=== PATIENT | male | born 1975 ===

== ENCOUNTER 2021-07-27 12:32 | Emergency (ER) | payer OTHER ==
[2021-07-27] MEDS ORDERED: Dexamethasone 4 MG Tab PO ONE (13:39)
--- NOTE | 2021-07-27 13:42 | CR ---
Chest: Portable view of the chest was obtained. Comparison: Prior chest x-ray of 10/26/20. Heart size and mediastinum are within normal limits for portable technique. Scattered areas of parenchymal density are noted within both sides of the chest. Bony structures show nothing acute. Impression: 1. Patchy increased density within both sides of the chest. Findings have the appearance of moderately severe COVID pneumonia. Please correlate. Diagnostic code #3
[2021-07-27] MEDS ORDERED: Ketorolac 30 MG/ML SDV IVPUSH ONE (13:46)
[2021-07-27] MEDS ORDERED: Sodium Chloride 0.9% 10 ML Syringe FLUSH PRN (13:47)
[2021-07-27] MEDS ORDERED: methylPREDNISolone Sodium Succinate 125 MG/2 ML SDV IVPUSH PRN (14:34)
[2021-07-27] MEDS ORDERED: EPINEPHrine 1 MG/ML SDV IM PRN (14:34)
[2021-07-27] MEDS ORDERED: Famotidine 20 MG/2 ML SDV IVPUSH PRN (14:34)
[2021-07-27] MEDS ORDERED: diphenhydrAMINE 50 MG/ML SDV IVPUSH PRN (14:34)
[2021-07-27] MEDS ORDERED: Sodium Chloride 0.9% 10 ML Syringe FLUSH SCH (14:45)
--- NOTE | 2021-07-27 15:21 | EDM.PDOC ---
ED HPI GENERAL MEDICAL PROBLEM - General Chief Complaint: Respiratory Problem Stated Complaint: COVID SX Time Seen by Provider: 07/27/21 13:01 Source of Information: Reports: Patient, RN Notes Reviewed History Limitations: Reports: No Limitations - History of Present Illness INITIAL COMMENTS - FREE TEXT/NARRATIVE: Patient is a 45-year-old male presenting to the emergency department with complaints of Covid symptoms. He reports cough, shortness of breath, "lung pain" body aches, and diarrhea. Symptoms began approximately 7 days ago. Reports feeling dizzy last evening. Patient did not receive Covid vaccinations. Denies any chronic underlying medical conditions. - Related Data Allergies Allergy/AdvReac Type Severity Reaction Status Date / Time No Known Allergies Allergy Verified 07/27/21 13:03 Home Meds: Home Meds dexAMETHasone [Decadron] 6 mg PO DAILY #4 tablet 07/27/21 [Rx] Past Medical History - Past Health History Medical/Surgical History: Denies Medical/Surgical History Endocrine/Metabolic History: Reports: Obesity/BMI 30+ Social & Family History - Tobacco Use Tobacco Use Status *Q: Never Tobacco User - Caffeine Use Caffeine Use: Reports: Coffee - Recreational Drug Use Recreational Drug Use: No ED ROS GENERAL - Review of Systems Review Of Systems: See Below Constitutional: Reports: Fever, Fatigue, Decreased Appetite HEENT: Reports: No Symptoms Respiratory: Reports: Shortness of Breath, Pleuritic Chest Pain, Cough Cardiovascular: Reports: Dyspnea on Exertion. Denies: Palpitations, Syncope Endocrine: Reports: No Symptoms GI/Abdominal: Reports: Diarrhea, Mucous in Stool. Denies: Abdominal Pain, Nausea, Vomiting Musculoskeletal: Reports: Other (Generalized body aches) Skin: Reports: No Symptoms Neurological: Reports: No Symptoms Psychiatric: Reports: No Symptoms Hematologic/Lymphatic: Reports: No Symptoms Immunologic: Reports: No Symptoms ED EXAM, GENERAL - Physical Exam Exam: See Below Exam Limited By: No Limitations General Appearance: Alert, WD/WN, No Apparent Distress Respiratory/Chest: No Respiratory Distress, No Accessory Muscle Use, Chest Non- Tender, Other (Minimal fine crackles to bilateral bases.) Cardiovascular: Normal Peripheral Pulses, Regular Rate, Rhythm, No Edema, No Gallop, No JVD, No Murmur, No Rub GI/Abdominal: Normal Bowel Sounds, Soft, Non-Tender, No Organomegaly, No Distention, No Abnormal Bruit, No Mass Neurological: Alert, Oriented, CN II-XII Intact, Normal Cognition, Normal Gait, Normal Reflexes, No Motor/Sensory Deficits Psychiatric: Normal Affect, Normal Mood Skin Exam: Warm, Dry, Intact, Normal Color, No Rash #1 Interpretation EKG Date: 07/27/21 Time: 13:54 Rhythm: NSR Rate (Beats/Min): 106 [place]: Normal P-Wave: Present QRS: Normal ST-T: Normal QT: Prolonged (mildly) Course - Vital Signs Last Recorded V/S: Last Vital Signs Temp 97.2 F 07/27/21 13:01 Pulse 89 07/27/21 16:00 Resp 24 H 07/27/21 16:00 BP 116/79 07/27/21 16:00 Pulse Ox 93 L 07/27/21 16:00 - Orders/Labs/Meds Orders: Active Orders 24 hr Category Date Time Status Peripheral IV Insertion Adult [OM.PC] Stat Oth 07/27/21 13:47 Ordered Labs: Laboratory Tests 07/27/21 07/27/21 07/27/21 Range/Units 13:22 13:22 13:22 WBC 8.12 (4.23-9.07) K/mm3 RBC 5.25 (4.63-6.08) M/mm3 Hgb 15.4 D (13.7-17.5) gm/dl Hct 46.1 (40.1-51.0) % MCV 87.8 (79.0-92.2) fl MCH 29.3 (25.7-32.2) pg MCHC 33.4 (32.2-35.5) g/dl RDW Std Deviation 44.0 H (35.1-43.9) fL Plt Count 192 (163-337) K/mm3 MPV 9.7 (9.4-12.3) fl Neut % (Auto) 80.8 H (34.0-67.9) % Lymph % (Auto) 13.4 L (21.8-53.1) % [place] % (Auto) 5.3 (5.3-12.2) % Eos % (Auto) 0 L (0.8-7.0) Baso % (Auto) 0.1 (0.1-1.2) % Neut # (Auto) 6.56 H (1.78-5.38) K/mm3 Lymph # (Auto) 1.09 L (1.32-3.57) K/mm3 [place] # (Auto) 0.43 (0.30-0.82) K/mm3 Eos # (Auto) 0.00 L (0.04-0.54) K/mm3 Baso # (Auto) 0.01 (0.01-0.08) K/mm3 D-Dimer, Quantitative 0.56 H (0.19-0.50) mg/L Sodium 142 (136-145) mEq/L Potassium 3.8 (3.5-5.1) mEq/L Chloride 105 (98-107) mEq/L Carbon Dioxide 27 (21-32) mEq/L Anion Gap 13.8 (5-15) BUN 14 (7-18) mg/dL Creatinine 0.9 (0.7-1.3) mg/dL Est Cr Clr Drug Dosing 81.66 mL/min Estimated GFR (MDRD) > 60 (>60) mL/min BUN/Creatinine Ratio 15.6 (14-18) Glucose 165 H (70-99) mg/dL Calcium 8.0 L (8.5-10.1) mg/dL Total Bilirubin 0.5 (0.2-1.0) mg/dL AST 60 H (15-37) U/L ALT 55 (16-63) U/L Alkaline Phosphatase 63 (46-116) U/L Troponin I < 0.017 (0.00-0.056) ng/mL C-Reactive Protein 12.9 H* (<1.0) mg/dL Total Protein 6.9 (6.4-8.2) g/dl Albumin 3.0 L (3.4-5.0) g/dl Globulin 3.9 gm/dL Albumin/Globulin Ratio 0.8 L (1-2) SARS-CoV-2 RNA (LOLI) (NEGATIVE) 07/27/21 Range/Units 13:22 WBC (4.23-9.07) K/mm3 RBC (4.63-6.08) M/mm3 Hgb (13.7-17.5) gm/dl Hct (40.1-51.0) % MCV (79.0-92.2) fl MCH (25.7-32.2) pg MCHC (32.2-35.5) g/dl RDW Std Deviation (35.1-43.9) fL Plt Count (163-337) K/mm3 MPV (9.4-12.3) fl Neut % (Auto) (34.0-67.9) % Lymph % (Auto) (21.8-53.1) % [place] % (Auto) (5.3-12.2) % Eos % (Auto) (0.8-7.0) Baso % (Auto) (0.1-1.2) % Neut # (Auto) (1.78-5.38) K/mm3 Lymph # (Auto) (1.32-3.57) K/mm3 [place] # (Auto) (0.30-0.82) K/mm3 Eos # (Auto) (0.04-0.54) K/mm3 Baso # (Auto) (0.01-0.08) K/mm3 D-Dimer, Quantitative (0.19-0.50) mg/L Sodium (136-145) mEq/L Potassium (3.5-5.1) mEq/L Chloride (98-107) mEq/L Carbon Dioxide (21-32) mEq/L Anion Gap (5-15) BUN (7-18) mg/dL Creatinine (0.7-1.3) mg/dL Est Cr Clr Drug Dosing mL/min Estimated GFR (MDRD) (>60) mL/min BUN/Creatinine Ratio (14-18) Glucose (70-99) mg/dL Calcium (8.5-10.1) mg/dL Total Bilirubin (0.2-1.0) mg/dL AST (15-37) U/L ALT (16-63) U/L Alkaline Phosphatase (46-116) U/L Troponin I (0.00-0.056) ng/mL C-Reactive Protein (<1.0) mg/dL Total Protein (6.4-8.2) g/dl Albumin (3.4-5.0) g/dl Globulin gm/dL Albumin/Globulin Ratio (1-2) SARS-CoV-2 RNA (LOLI) Positive H (NEGATIVE) Meds: Medications Discontinued Medications Generic Name Dose Route Start Last Admin Trade Name Freq PRN Reason Stop Dose Admin Dexamethasone 6 mg 07/27/21 13:39 07/27/21 14:03 Dexamethasone 4 Mg Tab PO 07/27/21 13:40 6 mg ONETIME ONE Administration Diphenhydramine HCl 50 mg 07/27/21 14:34 Diphenhydramine 50 Mg/Ml Sdv IVPUSH ONETIME PRN hypersensitivity reaction Epinephrine HCl 0.3 mg 07/27/21 14:34 Epinephrine 1 Mg/Ml Sdv IM ONETIME PRN hypersensitivity reaction Famotidine 20 mg 07/27/21 14:34 Famotidine 20 Mg/2 Ml Sdv IVPUSH ONETIME PRN hypersensitivity reaction CASIRIVIMAB/IMDEVIMAB 10 ml/ 110 mls @ 220 mls/hr 07/27/21 14:34 07/27/21 1 4:54 Sodium Chloride IV 07/27/21 15:03 220 mls/hr ONETIME ONE Administration Ketorolac Tromethamine 30 mg 07/27/21 13:46 07/27/21 14:06 Ketorolac 30 Mg/Ml Sdv IVPUSH 07/27/21 13:47 30 mg ONETIME ONE Administration Methylprednisolone Sodium Succinate 125 mg 07/27/21 14:34 Methylprednisolone Sodium Succinate 125 Mg/2 Ml Sdv IVPUSH ONETIME PRN hypersensitivity reaction Sodium Chloride 10 ml 07/27/21 13:47 Sodium Chloride 0.9% 10 Ml Syringe FLUSH ASDIRECTED PRN Keep Vein Open Sodium Chloride 30 ml 07/27/21 14:45 Sodium Chloride 0.9% 10 Ml Syringe FLUSH ASDIRECTED OCTAVIA - Re-Assessments/Exams Free Text/Narrative Re-Assessment/Exam: Patient is a 45-year-old male presenting to the emergency department for evaluation of Covid symptoms. He is approximately 7 days into his illness. On exam, patient has fine crackles to bilateral bases. Oxygen saturations have been 90 to 93%. Vital signs are stable. Presentation is highly suspicious for COVID-19. Have ordered blood work, EKG, chest x-ray, and Covid test. I will give dexamethasone 6 mg p.o. and Toradol 30 mg IV. 07/27/21 1435 Hematology significant for D-dimer minimally elevated at 0.56 and CRP 12.9. Covid is positive. Chest x-ray shows diffuse bilateral Covid pneumonia. Oxygen saturations are maintaining 90 to 93%. I spoke with patient to provide information about Regeneron treatment for patient I offered them the ``Patient and Caregiver SRAVANTHI Regeneron Fact Sheet to read and review I stated the drug has been approved by an emergency use authorization (EUA) process and has not fully been FDA reviewed or approved The patient meets the EUA requirements I discussed there are other potential treatment options that are currently not FDA approved to treat COVID-19. Offered opportunity to ask questions and all questions were answered Patient voiced understanding and agreed to proceed with treatment for patient. 07/27/21 16:30 Patient has completed his Regeneron infusion and waiting period without adverse event. Oxygen saturations have maintained 90 to 93%. We will discharge her home with prescription for dexamethasone to start tomorrow. Recommend purchasing home pulse oximeter and monitoring oxygen saturations. Discussed return precautions. Discharge instructions as documented. Departure - Departure Time of Disposition: 16:24 Disposition: Home, Self-Care 01 Condition: Good Clinical Impression: Pneumonia due to COVID-19 virus, COVID-19 - Discharge Information *PRESCRIPTION DRUG MONITORING PROGRAM REVIEWED*: No *COPY OF PRESCRIPTION DRUG MONITORING REPORT IN PATIENT JORDEN: No Prescriptions: dexAMETHasone [Decadron] 6 mg PO DAILY #4 tablet Instructions: COVID-19 Frequently Asked Questions Referrals: PCP,None [Primary Care Provider] - Forms: ED Department Discharge Additional Instructions: You were seen in the emergency department today for evaluation with regards to Covid symptoms. Work-up included blood work, chest x-ray, and Covid test. Results of your work-up show that you are Covid positive. Chest x-ray does show bilateral Covid pneumonia. Your oxygen saturations were in the normal range whi slick in the emergency department. While in the ER, you received an infusion of monoclonal antibodies as well as your first dose of dexamethasone. Prescription for dexamethasone has been sent to your pharmacy. Take this as prescribed starting tomorrow. Recommend purchasing a pulse oximeter that she may use at home. These are available at most pharmacies and possibly [facility]. Check your oxygen saturations intermittently throughout the day. If you are maintaining an oxygen saturation below 89% or you experience any other new or worsening symptoms of concern, you should return to the emergency department for reevaluation. Sepsis Event Note (ED) - Evaluation Sepsis Screening Result: No Definite Risk - Focused Exam Vital Signs: Vital Signs Temp Pulse Resp BP Pulse Ox 07/27/21 16:00 89 24 H 116/79 93 L 07/27/21 15:45 92 24 H 120/74 91 L 07/27/21 15:30 92 24 H 119/83 91 L 07/27/21 15:15 92 24 H 114/77 92 L 07/27/21 15:00 94 24 H 114/59 L 91 L 07/27/21 14:55 93 24 H 114/73 92 L 07/27/21 13:01 97.2 F 103 H 20 135/81 91 L - My Orders Last 24 Hours: My Active Orders 07/27/21 13:47 Peripheral IV Insertion Adult [OM.PC] Stat - Assessment/Plan Last 24 Hours: My Active Orders 07/27/21 13:47 Peripheral IV Insertion Adult [OM.PC] Stat
[2021-07-27 16:02] VITALS: BP 116/79; PULSE 89
== END 2021-07-27 16:58 | disposition home or self-care (01) ==
LOC: JD.ED 12:32
DX: U07.1 COVID-19 (principal); J12.82 Pneumonia due to coronavirus disease 2019; E66.9 Obesity, unspecified; Z68.31 Body mass index [BMI] 31.0-31.9, adult
CPT/HCPCS: 36415; 71045; 80053; 84484; 85025; 85379; 86140; 87635; 93005; 96374; 99285; J1885; J8540; M0243; Q0243; 93010; 99283; U0002

== ENCOUNTER 2021-07-29 09:51 | Inpatient (IN) | payer SELFPAY ==
--- NOTE | 2021-07-29 10:19 | EDM.PDOC ---
ED HPI GENERAL MEDICAL PROBLEM - General Chief Complaint: Respiratory Problem Stated Complaint: COVID + NOT GETTING BETTER Time Seen by Provider: 07/29/21 10:13 - History of Present Illness INITIAL COMMENTS - FREE TEXT/NARRATIVE: 45-year-old male presents the emergency room with increasing shortness of breath. He was diagnosed with Covid 2 days ago he did receive monoclonal antibody. However he is continuing to worsen. He is having increasing shortness of breath and difficulties with breathing. However he denies any chest pain. He is not having significant abdominal discomfort nausea vomiting constipation or diarrhea . He denies loss of smell or taste. Upon admission to the emergency room his O2 saturation was noted to be 77-79 % on room air. - Related Data Allergies Allergy/AdvReac Type Severity Reaction Status Date / Time No Known Allergies Allergy Verified 07/29/21 10:16 Home Meds: Home Meds dexAMETHasone [Decadron] 6 mg PO DAILY #4 tablet 07/27/21 [Rx] Past Medical History - Past Health History Medical/Surgical History: Denies Medical/Surgical History Endocrine/Metabolic History: Reports: Obesity/BMI 30+ Social & Family History - Tobacco Use Tobacco Use Status *Q: Never Tobacco User Second Hand Smoke Exposure: No - Caffeine Use Caffeine Use: Reports: Coffee, Soda - Recreational Drug Use Recreational Drug Use: No ED ROS GENERAL - Review of Systems Review Of Systems: See Below Constitutional: Reports: Malaise, Weakness, Fatigue HEENT: Reports: No Symptoms Respiratory: Reports: Shortness of Breath, Cough. Denies: Sputum, Hemoptysis Cardiovascular: Denies: Chest Pain GI/Abdominal: Reports: No Symptoms : Reports: No Symptoms Musculoskeletal: Reports: Other (Some generalized achiness) Skin: Reports: No Symptoms Neurological: Reports: No Symptoms ED EXAM, GENERAL - Physical Exam Exam: See Below Exam Limited By: No Limitations General Appearance: Alert, No Apparent Distress Eye Exam: Bilateral Eye: Normal Inspection Ears: Normal External Exam, Normal Canal, Hearing Grossly Normal, Normal TMs Nose: Normal Inspection, Normal Mucosa, No Blood Throat/Mouth: Normal Inspection, Normal Lips, Normal Teeth, Normal Gums, Normal Oropharynx, Normal Voice, No Airway Compromise Head: Atraumatic, Normocephalic Neck: Normal Inspection, Supple, Non-Tender, Full Range of Motion. No: Lymphadenopathy (L), Lymphadenopathy (R) Respiratory/Chest: No Respiratory Distress, No Accessory Muscle Use, Other (On initial exam he had a few crackles in the lung bases however when I went back and listened I did not hear this). No: Lungs Clear Cardiovascular: Regular Rate, Rhythm, No Edema, No Murmur GI/Abdominal: Normal Bowel Sounds, Soft, Non-Tender Back Exam: Normal Inspection. No: CVA Tenderness (L), CVA Tenderness (R) Extremities: Normal Inspection, No Pedal Edema Neurological: Alert, Oriented, Normal Cognition Course - Vital Signs Last Recorded V/S: Last Vital Signs Temp 36.3 C 07/29/21 10:12 Pulse 84 07/29/21 10:15 Resp 34 H 07/29/21 10:15 BP 126/84 07/29/21 10:15 Pulse Ox 95 07/29/21 10:16 - Orders/Labs/Meds Orders: Active Orders 24 hr Category Date Time Status HEPATIC FUNCTION PANEL,HFP [CHEM] DAILY Lab 07/30/21 12:15 Ordered HEPATIC FUNCTION PANEL,HFP [CHEM] DAILY Lab 07/31/21 12:15 Ordered HEPATIC FUNCTION PANEL,HFP [CHEM] DAILY Lab 08/01/21 12:15 Ordered HEPATIC FUNCTION PANEL,HFP [CHEM] DAILY Lab 08/02/21 12:15 Ordered Diltiazem IR [Cardizem] Med 07/29/21 13:26 Once 30 mg PO ONETIME ONE Labs: Laboratory Tests 07/29/21 07/29/21 07/29/21 Range/Units 10:56 12:28 12:28 WBC 9.77 H (4.23-9.07) K/mm3 RBC 5.55 (4.63-6.08) M/mm3 Hgb 16.3 (13.7-17.5) gm/dl Hct 49.4 (40.1-51.0) % MCV 89.0 (79.0-92.2) fl MCH 29.4 (25.7-32.2) pg MCHC 33.0 (32.2-35.5) g/dl RDW Std Deviation 44.4 H (35.1-43.9) fL Plt Count 286 D (163-337) K/mm3 MPV 9.7 (9.4-12.3) fl Neut % (Auto) 71.0 H (34.0-67.9) % Lymph % (Auto) 12.3 L (21.8-53.1) % [place] % (Auto) 11.1 (5.3-12.2) % Eos % (Auto) 0 L (0.8-7.0) Baso % (Auto) 0.9 (0.1-1.2) % Neut # (Auto) 6.94 H (1.78-5.38) K/mm3 Lymph # (Auto) 1.20 L (1.32-3.57) K/mm3 [place] # (Auto) 1.08 H (0.30-0.82) K/mm3 Eos # (Auto) 0.00 L (0.04-0.54) K/mm3 Baso # (Auto) 0.09 H (0.01-0.08) K/mm3 Manual Slide Review Normal smear D-Dimer, Quantitative 0.42 (0.19-0.50) mg/L Puncture Site Lt radial ABG pH 7.46 H (7.35-7.45) ABG pCO2 33.7 L (35.0-45.0) mmHg ABG pO2 63.0 L (80.0-100.0) mmHg ABG HCO3 23.7 (22.0-26.0) meq/L ABG O2 Saturation 90.4 L (96.0-97.0) % ABG Base Excess 1.0 (-2-2.0) Pedro Luis Test Positive O2 Delivery Device Room air Oxygen Flow Rate 0.0 Sodium (136-145) mEq/L Potassium (3.5-5.1) mEq/L Chloride (98-107) mEq/L Carbon Dioxide (21-32) mEq/L Anion Gap (5-15) BUN (7-18) mg/dL Creatinine (0.7-1.3) mg/dL Est Cr Clr Drug Dosing mL/min Estimated GFR (MDRD) (>60) mL/min BUN/Creatinine Ratio (14-18) Glucose (70-99) mg/dL Calcium (8.5-10.1) mg/dL Total Bilirubin (0.2-1.0) mg/dL Direct Bilirubin (0.0-0.2) mg/dl Indirect Bilirubin (0.1-1.0) mg/dL AST (15-37) U/L ALT (16-63) U/L Alkaline Phosphatase (46-116) U/L C-Reactive Protein (<1.0) mg/dL Total Protein (6.4-8.2) g/dl Albumin (3.4-5.0) g/dl Globulin gm/dL Albumin/Globulin Ratio (1-2) 07/29/21 07/29/21 Range/Units 12:28 12:28 WBC (4.23-9.07) K/mm3 RBC (4.63-6.08) M/mm3 Hgb (13.7-17.5) gm/dl Hct (40.1-51.0) % MCV (79.0-92.2) fl MCH (25.7-32.2) pg MCHC (32.2-35.5) g/dl RDW Std Deviation (35.1-43.9) fL Plt Count (163-337) K/mm3 MPV (9.4-12.3) fl Neut % (Auto) (34.0-67.9) % Lymph % (Auto) (21.8-53.1) % [place] % (Auto) (5.3-12.2) % Eos % (Auto) (0.8-7.0) Baso % (Auto) (0.1-1.2) % Neut # (Auto) (1.78-5.38) K/mm3 Lymph # (Auto) (1.32-3.57) K/mm3 [place] # (Auto) (0.30-0.82) K/mm3 Eos # (Auto) (0.04-0.54) K/mm3 Baso # (Auto) (0.01-0.08) K/mm3 Manual Slide Review D-Dimer, Quantitative (0.19-0.50) mg/L Puncture Site ABG pH (7.35-7.45) ABG pCO2 (35.0-45.0) mmHg ABG pO2 (80.0-100.0) mmHg ABG HCO3 (22.0-26.0) meq/L ABG O2 Saturation (96.0-97.0) % ABG Base Excess (-2-2.0) Pedro Luis Test O2 Delivery Device Oxygen Flow Rate Sodium 143 (136-145) mEq/L Potassium 4.3 (3.5-5.1) mEq/L Chloride 106 (98-107) mEq/L Carbon Dioxide 27 (21-32) mEq/L Anion Gap 14.3 (5-15) BUN 26 H (7-18) mg/dL Creatinine 0.9 (0.7-1.3) mg/dL Est Cr Clr Drug Dosing 81.66 mL/min Estimated GFR (MDRD) > 60 (>60) mL/min BUN/Creatinine Ratio 28.9 H (14-18) Glucose 161 H (70-99) mg/dL Calcium 8.6 (8.5-10.1) mg/dL Total Bilirubin 0.5 (0.2-1.0) mg/dL Direct Bilirubin 0.20 (0.0-0.2) mg/dl Indirect Bilirubin 0.3 (0.1-1.0) mg/dL AST 41 H (15-37) U/L ALT 59 (16-63) U/L Alkaline Phosphatase 69 (46-116) U/L C-Reactive Protein 6.8 H* (<1.0) mg/dL Total Protein 7.4 (6.4-8.2) g/dl Albumin 3.0 L (3.4-5.0) g/dl Globulin 4.4 gm/dL Albumin/Globulin Ratio 0.7 L (1-2) Meds: Medications Discontinued Medications Generic Name Dose Route Start Last Admin Trade Name Freq PRN Reason Stop Dose Admin Remdesivir 200 mg/ Sodium 250 mls @ 250 mls/hr 07/29/21 12:02 07/29/21 12:27 Chloride IV 07/29/21 12:03 250 mls/hr ONETIME ONE Administration - Re-Assessments/Exams Free Text/Narrative Re-Assessment/Exam: 07/29/21 13:17 Patient will be admitted with the significant hypoxia. He is started on remdesivir and dexamethasone. Case discussed with Dr. Carter, our hospitalist, who kindly accepts the patient. Refer to the patient's labs he is doing well on supplemental oxygen. Chest x-ray shows increased density within the left chest compared to the prior study a couple days ago. Departure - Departure Time of Disposition: 13:18 Disposition: Admitted As Inpatient 64 Clinical Impression: Pneumonia due to COVID-19 virus - Discharge Information Referrals: PCP,None [Primary Care Provider] - Forms: ED Department Discharge Sepsis Event Note (ED) - Evaluation Sepsis Screening Result: No Definite Risk - Focused Exam Vital Signs: Vital Signs Temp Pulse Resp BP Pulse Ox Pulse Ox 07/29/21 10:16 95 07/29/21 10:15 84 34 H 126/84 95 07/29/21 10:12 36.3 C 80 22 H 134/92 H 79 L - My Orders Last 24 Hours: My Active Orders 07/29/21 13:26 Diltiazem IR [Cardizem] 30 mg PO ONETIME ONE 07/30/21 12:15 HEPATIC FUNCTION PANEL,HFP [CHEM] DAILY 07/31/21 12:15 HEPATIC FUNCTION PANEL,HFP [CHEM] DAILY 08/01/21 12:15 HEPATIC FUNCTION PANEL,HFP [CHEM] DAILY 08/02/21 12:15 HEPATIC FUNCTION PANEL,HFP [CHEM] DAILY - Assessment/Plan Last 24 Hours: My Active Orders 07/29/21 13:26 Diltiazem IR [Cardizem] 30 mg PO ONETIME ONE 07/30/21 12:15 HEPATIC FUNCTION PANEL,HFP [CHEM] DAILY 07/31/21 12:15 HEPATIC FUNCTION PANEL,HFP [CHEM] DAILY 08/01/21 12:15 HEPATIC FUNCTION PANEL,HFP [CHEM] DAILY 08/02/21 12:15 HEPATIC FUNCTION PANEL,HFP [CHEM] DAILY
[2021-07-29] MEDS ORDERED: REMDESIVIR 200 MG in Sodium Chloride 0.9% 250 ML IV ONE (12:02)
--- NOTE | 2021-07-29 13:06 | CR ---
Chest: Frontal view of the chest was obtained. Comparison: Prior chest x-ray on 07/27/21. Heart size and mediastinum are stable. Patchy areas of increased density are seen on both sides of the chest. Findings on the left side are minimally increased. Findings on the right side are stable. Bony structures show nothing acute. Impression: 1. Slight increasing density within the left chest from prior study. 2. Other portions of the chest appear stable. Diagnostic code #3
[2021-07-29] MEDS ORDERED: Diltiazem IR 30 MG Tab PO ONE (13:26)
[2021-07-29] MEDS ORDERED: Albuterol 6.7 GM Inhaler INH PRN (15:52)
[2021-07-29] MEDS ORDERED: Melatonin 3 MG Tab PO PRN (15:52)
[2021-07-29] MEDS ORDERED: Ibuprofen 600 MG Tab PO PRN (15:52)
[2021-07-29] MEDS ORDERED: Ondansetron 4 MG/2 ML SDV IV PRN (15:52)
[2021-07-29] MEDS ORDERED: Albuterol/Ipratropium 3.0-0.5 MG/3 ML Neb Soln NEB PRN (15:52)
[2021-07-29] MEDS ORDERED: Acetaminophen 325 MG Tab PO PRN (15:52)
[2021-07-29] MEDS: Dexamethasone 4 MG Tab PO SCH (16:31)
--- NOTE | 2021-07-29 17:14 | PCM.HP.2 ---
H&P History of Present Illness - General Date of Service: 07/29/21 Admit Problem/Dx: Admission Diagnosis/Problem Admission Diagnosis/Problem Pneumonia - History of Present Illness Initial Comments - Free Text/Narative: 45-year-old male with 10 days of symptoms related to COVID-19 presents to the emergency department with worsening oxygen saturations. Patient was seen here 2 days ago in the emergency department secondary to shortness of breath. He was diagnosed with COVID-19 at that visit. Patient was given Regeneron and sent home to monitor his symptoms. This morning his oxygen saturations on his home m onitor was in the 60s. He was able to get them up to 80%, but felt it was important to come to the emergency department at the emergency department his oxygen saturations were between 77 and 79% on room air. He was placed on 2 L nasal cannula and his oxygen saturations increased to 95%. Patient complains of moderate shortness of breath and cough. Patient also complains of mild abdominal discomfort with diarrhea. He has lost the sense of taste. 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 He does not believe he got any specific treatment for it though. Chest x-ray did not show any cavitary lesions or granu karlee. It did show slight increasing density within the left chest consistent with COVID-19 pneumonia. Patient was started on remdesivir and given dexamethasone in the emergency department. On presentation to the emergency department his white count was 9.77, hemoglobin 16.3, platelet count 286, D-dimer 0.42. AB.46/33.7/63/24/. C-reactive protein 6.8. Sodium 143, potassium 4.3, chloride 106, bicarb 27, BUN 26, creatinine 0.9, glucose 161. AST 41, ALT 59, alk phos 69. Total bilirubin 0.5, albumin 3.0. - Related Data Allergies/Adverse Reactions: Allergies Allergy/AdvReac Type Severity Reaction Status Date / Time No Known Allergies Allergy Verified 07/29/21 10:16 Home Medications: Home Meds dexAMETHasone [Decadron] 6 mg PO DAILY #4 tablet 07/27/21 [Rx] Ibuprofen 2 tab PO PRN 07/29/21 [History] Past Medical History - Past Health History Medical/Surgical History: Denies Medical/Surgical History Respiratory History: Reports: Other (See Below) Other Respiratory History: baly fever 6-7 years ago Endocrine/Metabolic History: Reports: Obesity/BMI 30+ - Infectious Disease History Infectious Disease History: Reports: Novel Coronavirus Social & Family History - Tobacco Use Tobacco Use Status *Q: Never Tobacco User Second Hand Smoke Exposure: No - Caffeine Use Caffeine Use: Reports: Coffee, Soda - Recreational Drug Use Recreational Drug Use: No H&P Review of Systems - Review of Systems: Review Of Systems: Comprehensive ROS is negative, except as noted in HPI. Exam - Exam Exam: See Below - Vital Signs Vital Signs: Last Vital Signs Temp 98.1 F 07/29/21 15:00 Pulse 65 07/29/21 15:00 Resp 30 H 07/29/21 15:00 BP 133/96 H 07/29/21 15:00 Pulse Ox 90 L 07/29/21 15:00 Weight: 170 lb 6.4 oz - Exam Quality Assessment: Supplemental Oxygen General: Alert, Oriented, 4 HEENT: Conjunctiva Clear, Hearing Intact, Mucosa Moist & [place], Normal Nasal Septum Neck: Supple, Trachea Midline, 2 Lungs: Crackles (Bibasilar). No: Normal Respiratory Effort (Increased respiratory rate and effort) Cardiovascular: Regular Rate, Regular Rhythm GI/Abdominal Exam: Normal Bowel Sounds, Soft, Non-Tender, No Distention Extremities: Normal Inspection, Normal Range of Motion, Non-Tender, No Pedal Edema Skin: Warm, Dry, Intact Neurological: Cranial Nerves Intact Neuro Extensive - Mental Status: Alert, Oriented x3, Normal Mood/Affect, Normal Cognition - Patient Data Lab Results Last 24 hrs: Laboratory Results - last 24 hr 07/29/21 07/29/21 07/29/21 Range/Units 10:56 12:28 12:28 WBC 9.77 H (4.23-9.07) K/mm3 RBC 5.55 (4.63-6.08) M/mm3 Hgb 16.3 (13.7-17.5) gm/dl Hct 49.4 (40.1-51.0) % MCV 89.0 (79.0-92.2) fl MCH 29.4 (25.7-32.2) pg MCHC 33.0 (32.2-35.5) g/dl RDW Std Deviation 44.4 H (35.1-43.9) fL Plt Count 286 D (163-337) K/mm3 MPV 9.7 (9.4-12.3) fl Neut % (Auto) 71.0 H (34.0-67.9) % Lymph % (Auto) 12.3 L (21.8-53.1) % [place] % (Auto) 11.1 (5.3-12.2) % Eos % (Auto) 0 L (0.8-7.0) Baso % (Auto) 0.9 (0.1-1.2) % Neut # (Auto) 6.94 H (1.78-5.38) K/mm3 Lymph # (Auto) 1.20 L (1.32-3.57) K/mm3 [place] # (Auto) 1.08 H (0.30-0.82) K/mm3 Eos # (Auto) 0.00 L (0.04-0.54) K/mm3 Baso # (Auto) 0.09 H (0.01-0.08) K/mm3 Manual Slide Review Normal smear D-Dimer, Quantitative 0.42 (0.19-0.50) mg/L Puncture Site Lt radial ABG pH 7.46 H (7.35-7.45) ABG pCO2 33.7 L (35.0-45.0) mmHg ABG pO2 63.0 L (80.0-100.0) mmHg ABG HCO3 23.7 (22.0-26.0) meq/L ABG O2 Saturation 90.4 L (96.0-97.0) % ABG Base Excess 1.0 (-2-2.0) Pedro Luis Test Positive O2 Delivery Device Room air Oxygen Flow Rate 0.0 Sodium (136-145) mEq/L Potassium (3.5-5.1) mEq/L Chloride (98-107) mEq/L Carbon Dioxide (21-32) mEq/L Anion Gap (5-15) BUN (7-18) mg/dL Creatinine (0.7-1.3) mg/dL Est Cr Clr Drug Dosing mL/min Estimated GFR (MDRD) (>60) mL/min BUN/Creatinine Ratio (14-18) Glucose (70-99) mg/dL Calcium (8.5-10.1) mg/dL Total Bilirubin (0.2-1.0) mg/dL Direct Bilirubin (0.0-0.2) mg/dl Indirect Bilirubin (0.1-1.0) mg/dL AST (15-37) U/L ALT (16-63) U/L Alkaline Phosphatase (46-116) U/L C-Reactive Protein (<1.0) mg/dL Total Protein (6.4-8.2) g/dl Albumin (3.4-5.0) g/dl Globulin gm/dL Albumin/Globulin Ratio (1-2) 07/29/21 07/29/21 Range/Units 12:28 12:28 WBC (4.23-9.07) K/mm3 RBC (4.63-6.08) M/mm3 Hgb (13.7-17.5) gm/dl Hct (40.1-51.0) % MCV (79.0-92.2) fl MCH (25.7-32.2) pg MCHC (32.2-35.5) g/dl RDW Std Deviation (35.1-43.9) fL Plt Count (163-337) K/mm3 MPV (9.4-12.3) fl Neut % (Auto) (34.0-67.9) % Lymph % (Auto) (21.8-53.1) % [place] % (Auto) (5.3-12.2) % Eos % (Auto) (0.8-7.0) Baso % (Auto) (0.1-1.2) % Neut # (Auto) (1.78-5.38) K/mm3 Lymph # (Auto) (1.32-3.57) K/mm3 [place] # (Auto) (0.30-0.82) K/mm3 Eos # (Auto) (0.04-0.54) K/mm3 Baso # (Auto) (0.01-0.08) K/mm3 Manual Slide Review D-Dimer, Quantitative (0.19-0.50) mg/L Puncture Site ABG pH (7.35-7.45) ABG pCO2 (35.0-45.0) mmHg ABG pO2 (80.0-100.0) mmHg ABG HCO3 (22.0-26.0) meq/L ABG O2 Saturation (96.0-97.0) % ABG Base Excess (-2-2.0) Pedro Luis Test O2 Delivery Device Oxygen Flow Rate Sodium 143 (136-145) mEq/L Potassium 4.3 (3.5-5.1) mEq/L Chloride 106 (98-107) mEq/L Carbon Dioxide 27 (21-32) mEq/L Anion Gap 14.3 (5-15) BUN 26 H (7-18) mg/dL Creatinine 0.9 (0.7-1.3) mg/dL Est Cr Clr Drug Dosing 81.66 mL/min Estimated GFR (MDRD) > 60 (>60) mL/min BUN/Creatinine Ratio 28.9 H (14-18) Glucose 161 H (70-99) mg/dL Calcium 8.6 (8.5-10.1) mg/dL Total Bilirubin 0.5 (0.2-1.0) mg/dL Direct Bilirubin 0.20 (0.0-0.2) mg/dl Indirect Bilirubin 0.3 (0.1-1.0) mg/dL AST 41 H (15-37) U/L ALT 59 (16-63) U/L Alkaline Phosphatase 69 (46-116) U/L C-Reactive Protein 6.8 H* (<1.0) mg/dL Total Protein 7.4 (6.4-8.2) g/dl Albumin 3.0 L (3.4-5.0) g/dl Globulin 4.4 gm/dL Albumin/Globulin Ratio 0.7 L (1-2) Result Diagrams: 07/29/21 12:28 07/29/21 12:28 Sepsis Event Note - Evaluation Sepsis Screening Result: No Definite Risk - Focused Exam Vital Signs: Vital Signs Temp Temp Pulse Pulse Resp BP BP 07/29/21 15:00 98.1 F 65 30 H 133/96 H 07/29/21 13:30 79 32 H 132/80 07/29/21 13:15 69 29 H 124/74 07/29/21 13:00 68 31 H 126/79 07/29/21 12:45 79 32 H 109/93 H 07/29/21 12:30 79 33 H 130/84 07/29/21 12:15 78 30 H 131/82 07/29/21 12:00 76 31 H 129/79 07/29/21 11:45 82 31 H 118/77 07/29/21 11:30 68 32 H 121/75 07/29/21 11:15 73 33 H 124/81 07/29/21 11:00 32 H 128/81 07/29/21 10:30 87 35 H 126/87 07/29/21 10:16 07/29/21 10:15 84 34 H 126/84 07/29/21 10:12 97.4 F 80 22 H 134/92 H Pulse Ox Pulse Ox 07/29/21 15:00 90 L 07/29/21 13:30 96 07/29/21 13:15 97 07/29/21 13:00 96 07/29/21 12:45 96 07/29/21 12:30 91 L 07/29/21 12:15 98 07/29/21 12:00 95 07/29/21 11:45 94 L 07/29/21 11:30 97 07/29/21 11:15 98 07/29/21 11:00 97 07/29/21 10:30 94 L 07/29/21 10:16 95 07/29/21 10:15 95 07/29/21 10:12 79 L - Problem List (1) Pneumonia due to COVID-19 virus SNOMED Code(s): 038957213968594408 ICD Code: U07.1 - COVID-19; J12.82 - PNEUMONIA DUE TO CORONAVIRUS DISEASE 2019 Status: Acute Current Visit: Yes (2) Coccidioidomycosis SNOMED Code(s): 10209015 ICD Code: B38.9 - COCCIDIOIDOMYCOSIS, UNSPECIFIED Status: Inactive Current Visit: Yes Problem List Initiated/Reviewed/Updated: Yes Orders Last 24hrs: Active Orders 24 hr Category Date Time Status Admission Status [Patient Status] [ADT] Routine ADT 07/29/21 13:46 Active Oxygen Therapy [RC] PRN Care 07/29/21 15:52 Active Positioning, Patient [RC] ASDIRECTED Care 07/29/21 15:52 Active RT Aerosol Therapy [RC] ASDIRECTED Care 07/29/21 15:55 Active RT Post Treatment Assessment [RC] Click to Edit Care 07/29/21 15:56 Active RT Pre-Treatment Assessment [RC] Click to Edit Care 07/29/21 15:56 Active Up ad Shabnam [RC] ASDIRECTED Care 07/29/21 15:52 Active VTE/DVT Education [RC] PER UNIT ROUTINE Care 07/29/21 15:52 Active Vital Signs [RC] Q4H Care 07/29/21 15:52 Active PT Evaluation and Treatment [CONS] Routine Cons 07/29/21 15:52 Active Regular Diet [DIET] Diet 07/29/21 Dinner Active C-REACTIVE PROTEIN [CHEM] AM Lab 07/30/21 05:11 Ordered CBC WITH AUTO DIFF [HEME] AM Lab 07/30/21 05:11 Ordered CMP [COMPREHENSIVE METABOLIC PN,CMP] [CHEM] AM Lab 07/30/21 05:11 Ordered DD [D-DIMER QUANTITATIVE] [COAG] AM Lab 07/30/21 05:11 Ordered HEPATIC FUNCTION PANEL,HFP [CHEM] DAILY Lab 07/30/21 12:15 Ordered HEPATIC FUNCTION PANEL,HFP [CHEM] DAILY Lab 07/31/21 12:15 Ordered HEPATIC FUNCTION PANEL,HFP [CHEM] DAILY Lab 08/01/21 12:15 Ordered HEPATIC FUNCTION PANEL,HFP [CHEM] DAILY Lab 08/02/21 12:15 Ordered MAGNESIUM [CHEM] AM Lab 07/30/21 05:11 Ordered PHOSPHORUS [CHEM] AM Lab 07/30/21 05:11 Ordered Acetaminophen [TylenoL] Med 07/29/21 15:52 Active 650 mg PO Q4H PRN Albuterol [Proventil HFA] Med 07/29/21 15:52 Active See Dose Instructions INH Q2H PRN Albuterol/Ipratropium [DuoNeb 3.0-0.5 MG/3 ML] Med 07/29/21 15:52 Active 3 ml NEB Q4H PRN Enoxaparin [Lovenox] Med 07/30/21 09:00 Active 40 mg SUBCUT DAILY Ibuprofen [Motrin] Med 07/29/21 15:52 Active 600 mg PO Q6H PRN Melatonin Med 07/29/21 15:52 Active 6 mg PO BEDTIME PRN Ondansetron [Zofran] Med 07/29/21 15:52 Active 4 mg IV Q6H PRN Remdesivir 100 mg Med 07/30/21 12:30 Active Sodium Chloride 0.9% [Normal Saline] 100 ml IV Q24H dexAMETHasone Med 07/29/21 16:00 Active 6 mg PO DAILY Isolation [COMM] Stat Oth 07/29/21 15:52 Ordered Code Status [Resuscitation Status] Routine Resus Stat 07/29/21 15:54 Ordered Medication Orders Acetaminophen (Acetaminophen 325 Mg Tab) 650 mg PO Q4H PRN PRN Reason: Pain (Mild 1-3)/fever Albuterol (Albuterol 6.7 Gm Inhaler) 0 gm INH Q2H PRN PRN Reason: Shortness of Breath Albuterol/Ipratropium (Albuterol/Ipratropium 3.0-0.5 Mg/3 Ml Neb Soln) 3 ml NEB Q4H PRN PRN Reason: Shortness Of Breath/wheezing Dexamethasone (Dexamethasone 4 Mg Tab) 6 mg PO DAILY [facility] Stop: 08/07/21 09:01 Last Admin: 07/29/21 16:31 Dose: 6 mg Documented by: TOM Enoxaparin Sodium (Enoxaparin 40 Mg/0.4 Ml Syringe) 40 mg SUBCUT DAILY [facility] Remdesivir 100 mg/ Sodium (Chloride) 100 mls @ 100 mls/hr IV Q24H [place] Stop: 08/02/21 13:29 Ibuprofen (Ibuprofen 600 Mg Tab) 600 mg PO Q6H PRN PRN Reason: Pain (moderate 4-6) Melatonin (Melatonin 3 Mg Tab) 6 mg PO BEDTIME PRN PRN Reason: Insomnia Ondansetron HCl (Ondansetron 4 Mg/2 Ml Sdv) 4 mg IV Q6H PRN PRN Reason: Nausea/Vomiting Assessment/Plan Comment:: 44-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 COVID-19 pneumonia * Oxygen saturations in the 70s on presentation to the emergency department * Received remdesivir and dexamethasone in the emergency department * White count 9.77 and C-reactive protein of 6.8 * Continue patient on remdesivir and dexamethasone as inpatient. * FiO2 to keep SPO2 approximately 90%. * Strict isolation * Follow CBC, CMP, mag, Phos, D-dimer, C-reactive protein * Chest x-ray as needed * Follow blood sugars closely Borderline hyperglycemia * Blood sugar 161 in the emergency department * Will get a hemoglobin A1c and follow blood sugars 4 times daily * Anticipate worsening blood sugars secondary to steroids * No history of diabetes. Remote history of coccidioidomycosis * Patient has history of being admitted for valley fever * Unknown treatment course * Chest x-ray shows no signs of fungal infection * Will need to follow closely secondary to steroids VTE prophylaxis with Lovenox CODE STATUS: Full code - Mortality Measure Prognosis:: Good
[2021-07-29 18:24] LABS: HEMOGLOBIN A1C 5.9 %
[2021-07-29] MEDS: Insulin Lispro 100 UNIT/ML 10 ML Vial SUBCUT SCH (21:11)
[2021-07-30] MEDS: Insulin Lispro 100 UNIT/ML 10 ML Vial SUBCUT SCH ×4 (07:45→21:27)
[2021-07-30] MEDS: Dexamethasone 4 MG Tab PO SCH (08:15)
[2021-07-30] MEDS: Enoxaparin 40 MG/0.4 ML Syringe SUBCUT SCH (08:17)
[2021-07-30] MEDS: REMDESIVIR 100 MG in Sodium Chloride 0.9% 100 ML IV SCH (12:12)
--- NOTE | 2021-07-30 18:28 | PCM.PN ---
- General Info Date of Service: 07/30/21 Admission Dx/Problem (Free Text): Admission Diagnosis/Problem Admission Diagnosis/Problem Pneumonia Subjective Update: 45-year-old male with 10 days of symptoms related to COVID-19 presents to the emergency department with worsening oxygen saturations. Patient was seen here 2 days ago in the emergency department secondary to shortness of breath. He was diagnosed with COVID-19 at that visit. Patient feels much better. Denies fever, chills, headache, dizziness, nausea, vomiting, or diarrhea. He is on 3 L via nasal cannula - Review of Systems Systems Review Comment:: Positive for shortness of breath. All other systems were reviewed and negative. - Patient Data Vitals - Most Recent: Last Vital Signs Temp 36.8 C 07/30/21 16:58 Pulse 64 07/30/21 16:58 Resp 20 07/30/21 16:58 BP 112/79 07/30/21 16:58 Pulse Ox 93 L 07/30/21 16:58 Weight - Most Recent: 77.655 kg I&O - Last 24 Hours: Intake & Output 07/30/21 07/30/21 07/30/21 06:59 14:59 22:59 Intake Total 100 917 Output Total 800 700 Balance -700 217 Lab Results Last 24 Hours: Laboratory Results - last 24 hr 07/29/21 07/29/21 07/30/21 Range/Units 12:28 20:27 05:32 WBC (4.23-9.07) K/mm3 RBC (4.63-6.08) M/mm3 Hgb (13.7-17.5) gm/dl Hct (40.1-51.0) % MCV (79.0-92.2) fl MCH (25.7-32.2) pg MCHC (32.2-35.5) g/dl RDW Std Deviation (35.1-43.9) fL Plt Count (163-337) K/mm3 MPV (9.4-12.3) fl Neut % (Auto) (34.0-67.9) % Lymph % (Auto) (21.8-53.1) % [place] % (Auto) (5.3-12.2) % Eos % (Auto) (0.8-7.0) Baso % (Auto) (0.1-1.2) % Neut # (Auto) (1.78-5.38) K/mm3 Lymph # (Auto) (1.32-3.57) K/mm3 [place] # (Auto) (0.30-0.82) K/mm3 Eos # (Auto) (0.04-0.54) K/mm3 Baso # (Auto) (0.01-0.08) K/mm3 Manual Slide Review D-Dimer, Quantitative (0.19-0.50) mg/L Sodium (136-145) mEq/L Potassium (3.5-5.1) mEq/L Chloride (98-107) mEq/L Carbon Dioxide (21-32) mEq/L Anion Gap (5-15) BUN (7-18) mg/dL Creatinine (0.7-1.3) mg/dL Est Cr Clr Drug Dosing mL/min Estimated GFR (MDRD) (>60) mL/min BUN/Creatinine Ratio (14-18) Glucose (70-99) mg/dL POC Glucose 157 H (70-99) mg/dL Hemoglobin A1c 5.9 H ( - 5.6) % Calcium (8.5-10.1) mg/dL Phosphorus (2.6-4.7) mg/dL Magnesium (1.8-2.4) mg/dL Total Bilirubin 0.4 (0.2-1.0) mg/dL Direct Bilirubin 0.10 (0.0-0.2) mg/dl Indirect Bilirubin 0.30 AST 46 H (15-37) U/L ALT 94 H (16-63) U/L Alkaline Phosphatase 65 (46-116) U/L C-Reactive Protein (<1.0) mg/dL Total Protein 6.6 (6.4-8.2) g/dl Albumin 2.8 L (3.4-5.0) g/dl Globulin 3.8 gm/dL Albumin/Globulin Ratio 0.7 L (1-2) 07/30/21 07/30/21 07/30/21 Range/Units 05:32 05:32 05:32 WBC 8.81 (4.23-9.07) K/mm3 RBC 5.20 (4.63-6.08) M/mm3 Hgb 15.1 (13.7-17.5) gm/dl Hct 46.3 (40.1-51.0) % MCV 89.0 (79.0-92.2) fl MCH 29.0 (25.7-32.2) pg MCHC 32.6 (32.2-35.5) g/dl RDW Std Deviation 44.0 H (35.1-43.9) fL Plt Count 296 (163-337) K/mm3 MPV 10.1 (9.4-12.3) fl Neut % (Auto) 65.9 (34.0-67.9) % Lymph % (Auto) 15.2 L (21.8-53.1) % [place] % (Auto) 11.6 (5.3-12.2) % Eos % (Auto) 0 L (0.8-7.0) Baso % (Auto) 0.5 (0.1-1.2) % Neut # (Auto) 5.81 H (1.78-5.38) K/mm3 Lymph # (Auto) 1.34 (1.32-3.57) K/mm3 [place] # (Auto) 1.02 H (0.30-0.82) K/mm3 Eos # (Auto) 0.00 L (0.04-0.54) K/mm3 Baso # (Auto) 0.04 (0.01-0.08) K/mm3 Manual Slide Review Normal smear D-Dimer, Quantitative 0.36 (0.19-0.50) mg/L Sodium 143 (136-145) mEq/L Potassium 4.1 (3.5-5.1) mEq/L Chloride 106 (98-107) mEq/L Carbon Dioxide 24 (21-32) mEq/L Anion Gap 17.1 H (5-15) BUN 28 H (7-18) mg/dL Creatinine 0.8 (0.7-1.3) mg/dL Est Cr Clr Drug Dosing 91.87 mL/min Estimated GFR (MDRD) > 60 (>60) mL/min BUN/Creatinine Ratio 35.0 H (14-18) Glucose 141 H (70-99) mg/dL POC Glucose (70-99) mg/dL Hemoglobin A1c ( - 5.6) % Calcium 8.3 L (8.5-10.1) mg/dL Phosphorus 4.7 (2.6-4.7) mg/dL Magnesium 2.2 (1.8-2.4) mg/dL Total Bilirubin 0.4 (0.2-1.0) mg/dL Direct Bilirubin (0.0-0.2) mg/dl Indirect Bilirubin AST 45 H (15-37) U/L ALT 90 H (16-63) U/L Alkaline Phosphatase 65 (46-116) U/L C-Reactive Protein 3.4 H* (<1.0) mg/dL Total Protein 6.6 (6.4-8.2) g/dl Albumin 2.7 L (3.4-5.0) g/dl Globulin 3.9 gm/dL Albumin/Globulin Ratio 0.7 L (1-2) 07/30/21 07/30/21 07/30/21 Range/Units 06:33 11:39 16:55 WBC (4.23-9.07) K/mm3 RBC (4.63-6.08) M/mm3 Hgb (13.7-17.5) gm/dl Hct (40.1-51.0) % MCV (79.0-92.2) fl MCH (25.7-32.2) pg MCHC (32.2-35.5) g/dl RDW Std Deviation (35.1-43.9) fL Plt Count (163-337) K/mm3 MPV (9.4-12.3) fl Neut % (Auto) (34.0-67.9) % Lymph % (Auto) (21.8-53.1) % [place] % (Auto) (5.3-12.2) % Eos % (Auto) (0.8-7.0) Baso % (Auto) (0.1-1.2) % Neut # (Auto) (1.78-5.38) K/mm3 Lymph # (Auto) (1.32-3.57) K/mm3 [place] # (Auto) (0.30-0.82) K/mm3 Eos # (Auto) (0.04-0.54) K/mm3 Baso # (Auto) (0.01-0.08) K/mm3 Manual Slide Review D-Dimer, Quantitative (0.19-0.50) mg/L Sodium (136-145) mEq/L Potassium (3.5-5.1) mEq/L Chloride (98-107) mEq/L Carbon Dioxide (21-32) mEq/L Anion Gap (5-15) BUN (7-18) mg/dL Creatinine (0.7-1.3) mg/dL Est Cr Clr Drug Dosing mL/min Estimated GFR (MDRD) (>60) mL/min BUN/Creatinine Ratio (14-18) Glucose (70-99) mg/dL POC Glucose 133 H 125 H 132 H (70-99) mg/dL Hemoglobin A1c ( - 5.6) % Calcium (8.5-10.1) mg/dL Phosphorus (2.6-4.7) mg/dL Magnesium (1.8-2.4) mg/dL Total Bilirubin (0.2-1.0) mg/dL Direct Bilirubin (0.0-0.2) mg/dl Indirect Bilirubin AST (15-37) U/L ALT (16-63) U/L Alkaline Phosphatase (46-116) U/L C-Reactive Protein (<1.0) mg/dL Total Protein (6.4-8.2) g/dl Albumin (3.4-5.0) g/dl Globulin gm/dL Albumin/Globulin Ratio (1-2) Med Orders - Current: Current Medications Acetaminophen (Acetaminophen 325 Mg Tab) 650 mg PO Q4H PRN PRN Reason: Pain (Mild 1-3)/fever Albuterol (Albuterol 6.7 Gm Inhaler) 0 gm INH Q2H PRN PRN Reason: Shortness of Breath Albuterol/Ipratropium (Albuterol/Ipratropium 3.0-0.5 Mg/3 Ml Neb Soln) 3 ml NEB Q4H PRN PRN Reason: Shortness Of Breath/wheezing Dexamethasone (Dexamethasone 4 Mg Tab) 6 mg PO DAILY [facility] Stop: 08/07/21 09:01 Last Admin: 07/30/21 08:15 Dose: 6 mg Documented by: Enoxaparin Sodium (Enoxaparin 40 Mg/0.4 Ml Syringe) 40 mg SUBCUT DAILY [facility] Last Admin: 07/30/21 08:17 Dose: 40 mg Documented by: Remdesivir 100 mg/ Sodium (Chloride) 100 mls @ 100 mls/hr IV Q24H [facility] Stop: 08/02/21 13:29 Last Admin: 07/30/21 12:12 Dose: 100 mls/hr Documented by: Ibuprofen (Ibuprofen 600 Mg Tab) 600 mg PO Q6H PRN PRN Reason: Pain (moderate 4-6) Insulin Human Lispro (Insulin Lispro 100 Unit/Ml 10 Ml Vial) 0 unit SUBCUT QIDACANDBED [facility]; Protocol Last Admin: 07/30/21 17:05 Dose: Not Given Documented by: Melatonin (Melatonin 3 Mg Tab) 6 mg PO BEDTIME PRN PRN Reason: Insomnia Ondansetron HCl (Ondansetron 4 Mg/2 Ml Sdv) 4 mg IV Q6H PRN PRN Reason: Nausea/Vomiting Discontinued Medications Remdesivir 200 mg/ Sodium (Chloride) 250 mls @ 250 mls/hr IV ONETIME ONE Stop: 07/29/21 12:03 Last Admin: 07/29/21 12:27 Dose: 250 mls/hr Documented by: - Exam Physical Findings Comments:: General: Alert, Oriented, HEENT: Conjunctiva Clear, Hearing Intact, Mucosa Moist & [place], Normal Nasal Septum Neck: Supple, Trachea Midline, Lungs: Crackles (Bibasilar). No: Normal Respiratory Effort (Increased respiratory rate and effort) Cardiovascular: Regular Rate, Regular Rhythm GI/Abdominal Exam: Normal Bowel Sounds, Soft, Non-Tender, No Distention Extremities: Normal Inspection, Normal Range of Motion, Non-Tender, No Pedal Edema Skin: Warm, Dry, Intact Neurological: Cranial Nerves Intact Neuro Extensive - Mental Status: Alert, Oriented x3, Normal Mood/Affect, Normal Cognition - Patient Data Lab Results Last 24 hrs: Laboratory Results - last 24 hr 07/29/21 07/29/21 07/30/21 Range/Units 12:28 20:27 05:32 WBC (4.23-9.07) K/mm3 RBC (4.63-6.08) M/mm3 Hgb (13.7-17.5) gm/dl Hct (40.1-51.0) % MCV (79.0-92.2) fl MCH (25.7-32.2) pg MCHC (32.2-35.5) g/dl RDW Std Deviation (35.1-43.9) fL Plt Count (163-337) K/mm3 MPV (9.4-12.3) fl Neut % (Auto) (34.0-67.9) % Lymph % (Auto) (21.8-53.1) % [place] % (Auto) (5.3-12.2) % Eos % (Auto) (0.8-7.0) Baso % (Auto) (0.1-1.2) % Neut # (Auto) (1.78-5.38) K/mm3 Lymph # (Auto) (1.32-3.57) K/mm3 [place] # (Auto) (0.30-0.82) K/mm3 Eos # (Auto) (0.04-0.54) K/mm3 Baso # (Auto) (0.01-0.08) K/mm3 Manual Slide Review D-Dimer, Quantitative (0.19-0.50) mg/L Sodium (136-145) mEq/L Potassium (3.5-5.1) mEq/L Chloride (98-107) mEq/L Carbon Dioxide (21-32) mEq/L Anion Gap (5-15) BUN (7-18) mg/dL Creatinine (0.7-1.3) mg/dL Est Cr Clr Drug Dosing mL/min Estimated GFR (MDRD) (>60) mL/min BUN/Creatinine Ratio (14-18) Glucose (70-99) mg/dL POC Glucose 157 H (70-99) mg/dL Hemoglobin A1c 5.9 H ( - 5.6) % Calcium (8.5-10.1) mg/dL Phosphorus (2.6-4.7) mg/dL Magnesium (1.8-2.4) mg/dL Total Bilirubin 0.4 (0.2-1.0) mg/dL Direct Bilirubin 0.10 (0.0-0.2) mg/dl Indirect Bilirubin 0.30 AST 46 H (15-37) U/L ALT 94 H (16-63) U/L Alkaline Phosphatase 65 (46-116) U/L C-Reactive Protein (<1.0) mg/dL Total Protein 6.6 (6.4-8.2) g/dl Albumin 2.8 L (3.4-5.0) g/dl Globulin 3.8 gm/dL Albumin/Globulin Ratio 0.7 L (1-2) 07/30/21 07/30/21 07/30/21 Range/Units 05:32 05:32 05:32 WBC 8.81 (4.23-9.07) K/mm3 RBC 5.20 (4.63-6.08) M/mm3 Hgb 15.1 (13.7-17.5) gm/dl Hct 46.3 (40.1-51.0) % MCV 89.0 (79.0-92.2) fl MCH 29.0 (25.7-32.2) pg MCHC 32.6 (32.2-35.5) g/dl RDW Std Deviation 44.0 H (35.1-43.9) fL Plt Count 296 (163-337) K/mm3 MPV 10.1 (9.4-12.3) fl Neut % (Auto) 65.9 (34.0-67.9) % Lymph % (Auto) 15.2 L (21.8-53.1) % [place] % (Auto) 11.6 (5.3-12.2) % Eos % (Auto) 0 L (0.8-7.0) Baso % (Auto) 0.5 (0.1-1.2) % Neut # (Auto) 5.81 H (1.78-5.38) K/mm3 Lymph # (Auto) 1.34 (1.32-3.57) K/mm3 [place] # (Auto) 1.02 H (0.30-0.82) K/mm3 Eos # (Auto) 0.00 L (0.04-0.54) K/mm3 Baso # (Auto) 0.04 (0.01-0.08) K/mm3 Manual Slide Review Normal smear D-Dimer, Quantitative 0.36 (0.19-0.50) mg/L Sodium 143 (136-145) mEq/L Potassium 4.1 (3.5-5.1) mEq/L Chloride 106 (98-107) mEq/L Carbon Dioxide 24 (21-32) mEq/L Anion Gap 17.1 H (5-15) BUN 28 H (7-18) mg/dL Creatinine 0.8 (0.7-1.3) mg/dL Est Cr Clr Drug Dosing 91.87 mL/min Estimated GFR (MDRD) > 60 (>60) mL/min BUN/Creatinine Ratio 35.0 H (14-18) Glucose 141 H (70-99) mg/dL POC Glucose (70-99) mg/dL Hemoglobin A1c ( - 5.6) % Calcium 8.3 L (8.5-10.1) mg/dL Phosphorus 4.7 (2.6-4.7) mg/dL Magnesium 2.2 (1.8-2.4) mg/dL Total Bilirubin 0.4 (0.2-1.0) mg/dL Direct Bilirubin (0.0-0.2) mg/dl Indirect Bilirubin AST 45 H (15-37) U/L ALT 90 H (16-63) U/L Alkaline Phosphatase 65 (46-116) U/L C-Reactive Protein 3.4 H* (<1.0) mg/dL Total Protein 6.6 (6.4-8.2) g/dl Albumin 2.7 L (3.4-5.0) g/dl Globulin 3.9 gm/dL Albumin/Globulin Ratio 0.7 L (1-2) 07/30/21 07/30/21 07/30/21 Range/Units 06:33 11:39 16:55 WBC (4.23-9.07) K/mm3 RBC (4.63-6.08) M/mm3 Hgb (13.7-17.5) gm/dl Hct (40.1-51.0) % MCV (79.0-92.2) fl MCH (25.7-32.2) pg MCHC (32.2-35.5) g/dl RDW Std Deviation (35.1-43.9) fL Plt Count (163-337) K/mm3 MPV (9.4-12.3) fl Neut % (Auto) (34.0-67.9) % Lymph % (Auto) (21.8-53.1) % [place] % (Auto) (5.3-12.2) % Eos % (Auto) (0.8-7.0) Baso % (Auto) (0.1-1.2) % Neut # (Auto) (1.78-5.38) K/mm3 Lymph # (Auto) (1.32-3.57) K/mm3 [place] # (Auto) (0.30-0.82) K/mm3 Eos # (Auto) (0.04-0.54) K/mm3 Baso # (Auto) (0.01-0.08) K/mm3 Manual Slide Review D-Dimer, Quantitative (0.19-0.50) mg/L Sodium (136-145) mEq/L Potassium (3.5-5.1) mEq/L Chloride (98-107) mEq/L Carbon Dioxide (21-32) mEq/L Anion Gap (5-15) BUN (7-18) mg/dL Creatinine (0.7-1.3) mg/dL Est Cr Clr Drug Dosing mL/min Estimated GFR (MDRD) (>60) mL/min BUN/Creatinine Ratio (14-18) Glucose (70-99) mg/dL POC Glucose 133 H 125 H 132 H (70-99) mg/dL Hemoglobin A1c ( - 5.6) % Calcium (8.5-10.1) mg/dL Phosphorus (2.6-4.7) mg/dL Magnesium (1.8-2.4) mg/dL Total Bilirubin (0.2-1.0) mg/dL Direct Bilirubin (0.0-0.2) mg/dl Indirect Bilirubin AST (15-37) U/L ALT (16-63) U/L Alkaline Phosphatase (46-116) U/L C-Reactive Protein (<1.0) mg/dL Total Protein (6.4-8.2) g/dl Albumin (3.4-5.0) g/dl Globulin gm/dL Albumin/Globulin Ratio (1-2) Result Diagrams: 07/30/21 05:32 07/30/21 05:32 Sepsis Event Note - Evaluation Sepsis Screening Result: No Definite Risk - Focused Exam Vital Signs: Vital Signs Temp Pulse Resp BP Pulse Ox 07/30/21 16:58 36.8 C 64 20 112/79 93 L 07/30/21 11:42 36.8 C 57 L 20 120/78 91 L 07/30/21 08:22 36.7 C 66 24 H 101/79 91 L - Problem List Review Problem List Initiated/Reviewed/Updated: Yes - My Orders Last 24 Hours: My Active Orders 07/30/21 11:21 Oxygen Therapy [RC] ASDIRECTED 07/30/21 11:39 Pulse Oximetry Continuous Monitoring [OM.PC] Routine - Plan Plan:: 44-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 COVID-19 pneumonia * Symptoms started 11 days after positive test * Oxygen saturations in the 70s on presentation to the emergency department * Received remdesivir and dexamethasone in the emergency department * Received Regeneron in the ER * Continue patient on remdesivir (since 07/29) and dexamethasone (since 07/29). * D-dimer negative. Therapeutic anticoagulation has not been initiated. * FiO2 to keep SPO2 approximately 90%. * Strict isolation * Follow CBC, CMP, mag, Phos, D-dimer, C-reactive protein * Chest x-ray as needed * Follow blood sugars closely Borderline hyperglycemia * hemoglobin A1c 5.9 * follow blood sugars 4 times daily * Anticipate worsening blood sugars secondary to steroids * No history of diabetes. Remote history of coccidioidomycosis * Patient has history of being admitted for [place] fever * Unknown treatment course * Chest x-ray shows no signs of fungal infection * Will need to follow closely secondary to steroids Elevation of liver enymes * Mild elevation of liver enzyme * Could be due to infection or for Covid 19 * Repeat the liver function in morning VTE prophylaxis with Lovenox CODE STATUS: Full code Disposition: Possibly tomorrow if patient still on 3 L PCP Home oxygen
[2021-07-31] MEDS: Insulin Lispro 100 UNIT/ML 10 ML Vial SUBCUT SCH ×4 (07:02→21:45)
[2021-07-31] MEDS: Enoxaparin 40 MG/0.4 ML Syringe SUBCUT SCH (08:48)
[2021-07-31] MEDS: Dexamethasone 4 MG Tab PO SCH (08:49)
[2021-07-31] MEDS: REMDESIVIR 100 MG in Sodium Chloride 0.9% 100 ML IV SCH (12:10)
--- NOTE | 2021-07-31 13:54 | PCM.PN ---
- General Info Date of Service: 07/31/21 Admission Dx/Problem (Free Text): Admission Diagnosis/Problem Admission Diagnosis/Problem Pneumonia Subjective Update: 45-year-old male with 10 days of symptoms related to COVID-19 presents to the emergency department with worsening oxygen saturations. Patient was seen here 2 days ago in the emergency department secondary to shortness of breath. He was diagnosed with COVID-19 at that visit. Patient feels better. Denies fever, chills, headache, dizziness, nausea, vomiting, or diarrhea. He is on 4 L via nasal cannula today - Review of Systems Systems Review Comment:: Positive for shortness of breath. All other systems were reviewed and negative. - Patient Data Vitals - Most Recent: Last Vital Signs Temp 36.8 C 07/31/21 11:40 Pulse 71 07/31/21 11:40 Resp 18 07/31/21 11:40 BP 117/75 07/31/21 11:40 Pulse Ox 94 L 07/31/21 11:40 Weight - Most Recent: 77.201 kg I&O - Last 24 Hours: Intake & Output 07/30/21 07/31/21 07/31/21 22:59 06:59 14:59 Intake Total 1117 400 Output Total 700 700 Balance 417 -300 Lab Results Last 24 Hours: Laboratory Results - last 24 hr 07/30/21 07/30/21 07/31/21 Range/Units 16:55 20:39 06:32 POC Glucose 132 H 146 H 95 (70-99) mg/dL Total Bilirubin (0.2-1.0) mg/dL Direct Bilirubin (0.0-0.2) mg/dl Indirect Bilirubin AST (15-37) U/L ALT (16-63) U/L Alkaline Phosphatase (46-116) U/L Total Protein (6.4-8.2) g/dl Albumin (3.4-5.0) g/dl Globulin gm/dL Albumin/Globulin Ratio (1-2) 07/31/21 07/31/21 Range/Units 10:21 12:23 POC Glucose 124 H (70-99) mg/dL Total Bilirubin 0.5 (0.2-1.0) mg/dL Direct Bilirubin 0.20 (0.0-0.2) mg/dl Indirect Bilirubin 0.30 AST 24 (15-37) U/L ALT 74 H (16-63) U/L Alkaline Phosphatase 63 (46-116) U/L Total Protein 6.6 (6.4-8.2) g/dl Albumin 2.8 L (3.4-5.0) g/dl Globulin 3.8 gm/dL Albumin/Globulin Ratio 0.7 L (1-2) Med Orders - Current: Current Medications Acetaminophen (Acetaminophen 325 Mg Tab) 650 mg PO Q4H PRN PRN Reason: Pain (Mild 1-3)/fever Albuterol (Albuterol 6.7 Gm Inhaler) 0 gm INH Q2H PRN PRN Reason: Shortness of Breath Albuterol/Ipratropium (Albuterol/Ipratropium 3.0-0.5 Mg/3 Ml Neb Soln) 3 ml NEB Q4H PRN PRN Reason: Shortness Of Breath/wheezing Dexamethasone (Dexamethasone 4 Mg Tab) 6 mg PO DAILY [facility] Stop: 08/07/21 09:01 Last Admin: 07/31/21 08:49 Dose: 6 mg Documented by: Enoxaparin Sodium (Enoxaparin 40 Mg/0.4 Ml Syringe) 40 mg SUBCUT DAILY [facility] Last Admin: 07/31/21 08:48 Dose: 40 mg Documented by: Remdesivir 100 mg/ Sodium (Chloride) 100 mls @ 100 mls/hr IV Q24H [facility] Stop: 08/02/21 13:29 Last Admin: 07/31/21 12:10 Dose: 100 mls/hr Documented by: Ibuprofen (Ibuprofen 600 Mg Tab) 600 mg PO Q6H PRN PRN Reason: Pain (moderate 4-6) Insulin Human Lispro (Insulin Lispro 100 Unit/Ml 10 Ml Vial) 0 unit SUBCUT QIDACANDBED [facility]; Protocol Last Admin: 07/31/21 11:56 Dose: Not Given Documented by: Melatonin (Melatonin 3 Mg Tab) 6 mg PO BEDTIME PRN PRN Reason: Insomnia Ondansetron HCl (Ondansetron 4 Mg/2 Ml Sdv) 4 mg IV Q6H PRN PRN Reason: Nausea/Vomiting Discontinued Medications Remdesivir 200 mg/ Sodium (Chloride) 250 mls @ 250 mls/hr IV ONETIME ONE Stop: 07/29/21 12:03 Last Admin: 07/29/21 12:27 Dose: 250 mls/hr Documented by: - Exam Physical Findings Comments:: General: Alert, Oriented, HEENT: Conjunctiva Clear, Hearing Intact, Mucosa Moist & [place], Normal Nasal Septum Neck: Supple, Trachea Midline, Lungs: Crackles (Bibasilar). No: Normal Respiratory Effort (Increased respiratory rate and effort) Cardiovascular: Regular Rate, Regular Rhythm GI/Abdominal Exam: Normal Bowel Sounds, Soft, Non-Tender, No Distention Extremities: Normal Inspection, Normal Range of Motion, Non-Tender, No Pedal Edema Skin: Warm, Dry, Intact Neurological: Cranial Nerves Intact Neuro Extensive - Mental Status: Alert, Oriented x3, Normal Mood/Affect, Normal Cognition - Patient Data Lab Results Last 24 hrs: Laboratory Results - last 24 hr 07/30/21 07/30/21 07/31/21 Range/Units 16:55 20:39 06:32 POC Glucose 132 H 146 H 95 (70-99) mg/dL Total Bilirubin (0.2-1.0) mg/dL Direct Bilirubin (0.0-0.2) mg/dl Indirect Bilirubin AST (15-37) U/L ALT (16-63) U/L Alkaline Phosphatase (46-116) U/L Total Protein (6.4-8.2) g/dl Albumin (3.4-5.0) g/dl Globulin gm/dL Albumin/Globulin Ratio (1-2) 07/31/21 07/31/21 Range/Units 10:21 12:23 POC Glucose 124 H (70-99) mg/dL Total Bilirubin 0.5 (0.2-1.0) mg/dL Direct Bilirubin 0.20 (0.0-0.2) mg/dl Indirect Bilirubin 0.30 AST 24 (15-37) U/L ALT 74 H (16-63) U/L Alkaline Phosphatase 63 (46-116) U/L Total Protein 6.6 (6.4-8.2) g/dl Albumin 2.8 L (3.4-5.0) g/dl Globulin 3.8 gm/dL Albumin/Globulin Ratio 0.7 L (1-2) Result Diagrams: 07/30/21 05:32 07/30/21 05:32 Sepsis Event Note - Evaluation Sepsis Screening Result: No Definite Risk - Focused Exam Vital Signs: Vital Signs Temp Pulse Resp BP Pulse Ox Pulse Ox 07/31/21 11:40 36.8 C 71 18 117/75 94 L 07/31/21 07:41 36.8 C 61 16 130/67 93 L 07/31/21 06:46 90 L 07/31/21 04:42 36.7 C 60 19 121/78 91 L - Problem List Review Problem List Initiated/Reviewed/Updated: Yes - My Orders Last 24 Hours: My Active Orders 08/01/21 05:00 CBC WITH AUTO DIFF [HEME] DAILY COMPREHENSIVE METABOLIC PN,CMP [CHEM] DAILY CRP [C-REACTIVE PROTEIN] [CHEM] DAILY 08/02/21 05:00 CBC WITH AUTO DIFF [HEME] DAILY COMPREHENSIVE METABOLIC PN,CMP [CHEM] DAILY CRP [C-REACTIVE PROTEIN] [CHEM] DAILY 08/03/21 05:00 CBC WITH AUTO DIFF [HEME] DAILY COMPREHENSIVE METABOLIC PN,CMP [CHEM] DAILY CRP [C-REACTIVE PROTEIN] [CHEM] DAILY 08/04/21 05:00 CBC WITH AUTO DIFF [HEME] DAILY COMPREHENSIVE METABOLIC PN,CMP [CHEM] DAILY CRP [C-REACTIVE PROTEIN] [CHEM] DAILY 08/05/21 05:00 CBC WITH AUTO DIFF [HEME] DAILY COMPREHENSIVE METABOLIC PN,CMP [CHEM] DAILY CRP [C-REACTIVE PROTEIN] [CHEM] DAILY - Plan Plan:: 44-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 COVID-19 pneumonia * Symptoms started 11 days after positive test * Oxygen saturations in the 70s on presentation to the emergency department * Received remdesivir and dexamethasone in the emergency department * Received Regeneron in the ER * Continue patient on remdesivir (since 07/29) and dexamethasone (since 07/29). * D-dimer negative. Therapeutic anticoagulation has not been initiated. * FiO2 to keep SPO2 approximately 90%. * Strict isolation * Follow CBC, CMP, mag, Phos, D-dimer, C-reactive protein * Chest x-ray as needed * Follow blood sugars closely Borderline hyperglycemia * hemoglobin A1c 5.9 * follow blood sugars 4 times daily * Anticipate worsening blood sugars secondary to steroids * No history of diabetes. Remote history of coccidioidomycosis * Patient has history of being admitted for valley fever * Unknown treatment course * Chest x-ray shows no signs of fungal infection * Will need to follow closely secondary to steroids Elevation of liver enymes * Mild elevation of liver enzyme * Could be due to infection or for Covid 19 * Repeat the liver function in morning VTE prophylaxis with Lovenox CODE STATUS: Full code Disposition: Possibly 1-2 more days. He is on 4 L PCP Home oxygen
[2021-08-01] MEDS: Insulin Lispro 100 UNIT/ML 10 ML Vial SUBCUT SCH ×2 (06:38→11:37)
[2021-08-01] MEDS: Dexamethasone 4 MG Tab PO SCH (09:40)
[2021-08-01] MEDS: Enoxaparin 40 MG/0.4 ML Syringe SUBCUT SCH (09:41)
[2021-08-01 11:13] VITALS: BP 101/62; PULSE 75
[2021-08-01] MEDS: REMDESIVIR 100 MG in Sodium Chloride 0.9% 100 ML IV SCH (11:37)
--- NOTE | 2021-08-01 12:31 | PCM.DCSUM1 ---
Discharge Summary - Hospital Course Free Text/Narrative:: 44-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 COVID-19 pneumonia * Symptoms started 11 days after positive test * Oxygen saturations in the 70s on presentation to the emergency department * Received remdesivir and dexamethasone in the emergency department * Received Regeneron in the ER * will discontinue patient on remdesivir (since 07/29) today and discharge him on dexamethasone (since 07/29) for 5 more days with tapering. * D-dimer negative. Therapeutic anticoagulation has not been initiated. I will not discharge him on anticoagulation but I will order aspirin for him. * FiO2 to keep SPO2 approximately 90%. * Strict isolation * Follow CBC, CMP, mag, Phos, D-dimer, C-reactive protein * Chest x-ray as needed * Follow blood sugars closely Borderline hyperglycemia * hemoglobin A1c 5.9 * follow blood sugars 4 times daily * Anticipate worsening blood sugars secondary to steroids * No history of diabetes. * Diabetic diet Remote history of coccidioidomycosis * Patient has history of being admitted for valley fever * Unknown treatment course * Chest x-ray shows no signs of fungal infection * Will need to follow closely secondary to steroids Elevation of liver enymes, improved * Mild elevation of liver enzyme. AST 24, ALT 71, total bilirubin 0.6, and alkaline phos 63 * Could be due to infection or for Covid 19 * Repeat the liver function in morning Today patient does not have any complaints. Denies headache, dizziness, chest pain, nausea, vomiting, abdominal pain, or diarrhea. Patient is on 2.5 L. PT OT CM no concern to home. Patient will be discharged home with home oxygen to follow with PCP in 3 days. Repeat a CBC, CMP and electrolytes in 3 days. Continue to quarantine himself at home. Do not drive until approval from MD. Call PCP for medical issues. Diagnosis: Stroke: No - Discharge Data Discharge Date: 08/01/21 Discharge Disposition: Home, Self-Care 01 Condition: Good - Referral to Home Health Primary Care Physician: Alexandra Giles NP - Patient Summary/Data Consults: Consultations 07/29/21 15:52 PT Evaluation and Treatment [CONS] Routine Recommended Follow-up Testing/Procedures: follow with PCP in 3 days. Repeat a CBC, CMP and electrolytes in 3 days. Continue to quarantine himself at home. Do not drive until approval from MD. Call PCP for medical issues. - Patient Instructions Diet: Diabetic Diet Activity: As Tolerated Driving: Do Not Drive - Discharge Plan *PRESCRIPTION DRUG MONITORING PROGRAM REVIEWED*: Not Applicable *COPY OF PRESCRIPTION DRUG MONITORING REPORT IN PATIENT JORDEN: Not Applicable Prescriptions/Med Rec: Aspirin [Halfprin] 81 mg PO DAILY #30 tab.ec Albuterol [Proventil HFA] 1 puff INH Q4H PRN #1 box PRN Reason: Shortness Of Breath Home Medications: Home Meds Albuterol [Proventil HFA] 1 puff INH Q4H PRN #1 box 08/01/21 [Rx] Aspirin [Halfprin] 81 mg PO DAILY #30 tab.ec 08/01/21 [Rx] dexAMETHasone [Decadron] 6 mg PO DAILY #10 tablet 08/01/21 [Rx] Oxygen Therapy Mode: Nasal Cannula Oxygen Flow Rate (L/min): 3 Maintain SpO2% greater than: 92 Patient Handouts: COVID-19 Frequently Asked Questions, COVID-19, 10 Things You Can Do to Manage Your COVID-19 Symptoms at Home - [facility] (05/26/2021), Home Oxygen Use, Adult, Sepsis, Self Care, Adult Forms: ED Department Discharge Referrals: Alexandra Giles NP [Primary Care Provider] - see, pcp in 3 days [Other] - Discharge Summary/Plan Comment DC Time >30 min.: Yes Total # of Minutes for Discharge Time: 90mins - General Info Date of Service: 08/01/21 Admission Dx/Problem (Free Text: Admission Diagnosis/Problem Admission Diagnosis/Problem Pneumonia Subjective Update: 45-year-old male with 10 days of symptoms related to COVID-19 presents to the emergency department with worsening oxygen saturations. Patient was seen here 2 days ago in the emergency department secondary to shortness of breath. He was diagnosed with COVID-19 at that visit. Patient feels better. Denies fever, chills, headache, dizziness, nausea, vomiting, or diarrhea. He is on 2.5 L via nasal cannula today - Review of Systems General: Reports: No Symptoms HEENT: Reports: No Symptoms Pulmonary: Reports: No Symptoms Cardiovascular: Reports: No Symptoms Gastrointestinal: Reports: No Symptoms Genitourinary: Reports: No Symptoms Musculoskeletal: Reports: No Symptoms Skin: Reports: No Symptoms Neurological: Reports: No Symptoms Psychiatric: Reports: No Symptoms - Patient Data Vitals - Most Recent: Last Vital Signs Temp 36.8 C 08/01/21 11:04 Pulse 75 08/01/21 11:04 Resp 18 08/01/21 11:04 BP 101/62 08/01/21 11:04 Pulse Ox 90 L 08/01/21 11:04 Weight - Most Recent: 77.7 kg I&O - Last 24 hours: Intake & Output 07/31/21 08/01/21 08/01/21 22:59 06:59 14:59 Intake Total 1140 300 0 Output Total 700 800 Balance 440 -500 0 Lab Results - Last 24 hrs: Laboratory Results - last 24 hr 07/31/21 07/31/21 07/31/21 Range/Units 12:23 16:13 21:39 WBC (4.23-9.07) K/mm3 RBC (4.63-6.08) M/mm3 Hgb (13.7-17.5) gm/dl Hct (40.1-51.0) % MCV (79.0-92.2) fl MCH (25.7-32.2) pg MCHC (32.2-35.5) g/dl RDW Std Deviation (35.1-43.9) fL Plt Count (163-337) K/mm3 MPV (9.4-12.3) fl Neut % (Auto) (34.0-67.9) % Lymph % (Auto) (21.8-53.1) % [place] % (Auto) (5.3-12.2) % Eos % (Auto) (0.8-7.0) Baso % (Auto) (0.1-1.2) % Neut # (Auto) (1.78-5.38) K/mm3 Lymph # (Auto) (1.32-3.57) K/mm3 [place] # (Auto) (0.30-0.82) K/mm3 Eos # (Auto) (0.04-0.54) K/mm3 Baso # (Auto) (0.01-0.08) K/mm3 Manual Slide Review Sodium (136-145) mEq/L Potassium (3.5-5.1) mEq/L Chloride (98-107) mEq/L Carbon Dioxide (21-32) mEq/L Anion Gap (5-15) BUN (7-18) mg/dL Creatinine (0.7-1.3) mg/dL Est Cr Clr Drug Dosing mL/min Estimated GFR (MDRD) (>60) mL/min BUN/Creatinine Ratio (14-18) Glucose (70-99) mg/dL POC Glucose 139 H 132 H (70-99) mg/dL Calcium (8.5-10.1) mg/dL Total Bilirubin 0.5 (0.2-1.0) mg/dL Direct Bilirubin 0.20 (0.0-0.2) mg/dl Indirect Bilirubin 0.30 AST 24 (15-37) U/L ALT 74 H (16-63) U/L Alkaline Phosphatase 63 (46-116) U/L C-Reactive Protein (<1.0) mg/dL Total Protein 6.6 (6.4-8.2) g/dl Albumin 2.8 L (3.4-5.0) g/dl Globulin 3.8 gm/dL Albumin/Globulin Ratio 0.7 L (1-2) 08/01/21 08/01/21 08/01/21 Range/Units 04:58 04:58 06:10 WBC 12.22 H (4.23-9.07) K/mm3 RBC 5.62 (4.63-6.08) M/mm3 Hgb 16.4 (13.7-17.5) gm/dl Hct 48.8 (40.1-51.0) % MCV 86.8 (79.0-92.2) fl MCH 29.2 (25.7-32.2) pg MCHC 33.6 (32.2-35.5) g/dl RDW Std Deviation 41.5 (35.1-43.9) fL Plt Count 327 (163-337) K/mm3 MPV 9.9 (9.4-12.3) fl Neut % (Auto) 64.2 (34.0-67.9) % Lymph % (Auto) 17.9 L (21.8-53.1) % [place] % (Auto) 10.0 (5.3-12.2) % Eos % (Auto) 0.2 L (0.8-7.0) Baso % (Auto) 0.7 (0.1-1.2) % Neut # (Auto) 7.84 H (1.78-5.38) K/mm3 Lymph # (Auto) 2.19 (1.32-3.57) K/mm3 [place] # (Auto) 1.22 H (0.30-0.82) K/mm3 Eos # (Auto) 0.03 L (0.04-0.54) K/mm3 Baso # (Auto) 0.08 (0.01-0.08) K/mm3 Manual Slide Review Normal smear Sodium 138 (136-145) mEq/L Potassium 3.9 (3.5-5.1) mEq/L Chloride 105 (98-107) mEq/L Carbon Dioxide 25 (21-32) mEq/L Anion Gap 11.9 (5-15) BUN 31 H (7-18) mg/dL Creatinine 0.9 (0.7-1.3) mg/dL Est Cr Clr Drug Dosing 81.66 mL/min Estimated GFR (MDRD) > 60 (>60) mL/min BUN/Creatinine Ratio 34.4 H (14-18) Glucose 97 (70-99) mg/dL POC Glucose 95 (70-99) mg/dL Calcium 8.2 L (8.5-10.1) mg/dL Total Bilirubin 0.6 (0.2-1.0) mg/dL Direct Bilirubin (0.0-0.2) mg/dl Indirect Bilirubin AST 24 (15-37) U/L ALT 71 H (16-63) U/L Alkaline Phosphatase 63 (46-116) U/L C-Reactive Protein 1.1 H* (<1.0) mg/dL Total Protein 6.6 (6.4-8.2) g/dl Albumin 2.9 L (3.4-5.0) g/dl Globulin 3.7 gm/dL Albumin/Globulin Ratio 0.8 L (1-2) 08/01/21 Range/Units 11:03 WBC (4.23-9.07) K/mm3 RBC (4.63-6.08) M/mm3 Hgb (13.7-17.5) gm/dl Hct (40.1-51.0) % MCV (79.0-92.2) fl MCH (25.7-32.2) pg MCHC (32.2-35.5) g/dl RDW Std Deviation (35.1-43.9) fL Plt Count (163-337) K/mm3 MPV (9.4-12.3) fl Neut % (Auto) (34.0-67.9) % Lymph % (Auto) (21.8-53.1) % [place] % (Auto) (5.3-12.2) % Eos % (Auto) (0.8-7.0) Baso % (Auto) (0.1-1.2) % Neut # (Auto) (1.78-5.38) K/mm3 Lymph # (Auto) (1.32-3.57) K/mm3 [place] # (Auto) (0.30-0.82) K/mm3 Eos # (Auto) (0.04-0.54) K/mm3 Baso # (Auto) (0.01-0.08) K/mm3 Manual Slide Review Sodium (136-145) mEq/L Potassium (3.5-5.1) mEq/L Chloride (98-107) mEq/L Carbon Dioxide (21-32) mEq/L Anion Gap (5-15) BUN (7-18) mg/dL Creatinine (0.7-1.3) mg/dL Est Cr Clr Drug Dosing mL/min Estimated GFR (MDRD) (>60) mL/min BUN/Creatinine Ratio (14-18) Glucose (70-99) mg/dL POC Glucose 107 H (70-99) mg/dL Calcium (8.5-10.1) mg/dL Total Bilirubin (0.2-1.0) mg/dL Direct Bilirubin (0.0-0.2) mg/dl Indirect Bilirubin AST (15-37) U/L ALT (16-63) U/L Alkaline Phosphatase (46-116) U/L C-Reactive Protein (<1.0) mg/dL Total Protein (6.4-8.2) g/dl Albumin (3.4-5.0) g/dl Globulin gm/dL Albumin/Globulin Ratio (1-2) Med Orders - Current: Current Medications Acetaminophen (Acetaminophen 325 Mg Tab) 650 mg PO Q4H PRN PRN Reason: Pain (Mild 1-3)/fever Albuterol (Albuterol 6.7 Gm Inhaler) 0 gm INH Q2H PRN PRN Reason: Shortness of Breath Albuterol/Ipratropium (Albuterol/Ipratropium 3.0-0.5 Mg/3 Ml Neb Soln) 3 ml NEB Q4H PRN PRN Reason: Shortness Of Breath/wheezing Dexamethasone (Dexamethasone 4 Mg Tab) 6 mg PO DAILY [facility] Stop: 08/07/21 09:01 Last Admin: 08/01/21 09:40 Dose: 6 mg Documented by: Enoxaparin Sodium (Enoxaparin 40 Mg/0.4 Ml Syringe) 40 mg SUBCUT DAILY [facility] Last Admin: 08/01/21 09:41 Dose: 40 mg Documented by: Remdesivir 100 mg/ Sodium (Chloride) 100 mls @ 100 mls/hr IV Q24H [facility] Stop: 08/02/21 13:29 Last Admin: 08/01/21 11:37 Dose: 100 mls/hr Documented by: Ibuprofen (Ibuprofen 600 Mg Tab) 600 mg PO Q6H PRN PRN Reason: Pain (moderate 4-6) Insulin Human Lispro (Insulin Lispro 100 Unit/Ml 10 Ml Vial) 0 unit SUBCUT QIDACANDBED [facility]; Protocol Last Admin: 08/01/21 11:37 Dose: Not Given Documented by: Melatonin (Melatonin 3 Mg Tab) 6 mg PO BEDTIME PRN PRN Reason: Insomnia Ondansetron HCl (Ondansetron 4 Mg/2 Ml Sdv) 4 mg IV Q6H PRN PRN Reason: Nausea/Vomiting Discontinued Medications Remdesivir 200 mg/ Sodium (Chloride) 250 mls @ 250 mls/hr IV ONETIME ONE Stop: 07/29/21 12:03 Last Admin: 07/29/21 12:27 Dose: 250 mls/hr Documented by: - Exam Physical Findings Comments:: General: Alert, Oriented, HEENT: Conjunctiva Clear, Hearing Intact, Mucosa Moist & [place], Normal Nasal Septum Neck: Supple, Trachea Midline, Lungs: Crackles (Bibasilar)(improved). No: Normal Respiratory Effort Cardiovascular: Regular Rate, Regular Rhythm GI/Abdominal Exam: Normal Bowel Sounds, Soft, Non-Tender, No Distention Extremities: Normal Inspection, Normal Range of Motion, Non-Tender, No Pedal Edema Skin: Warm, Dry, Intact Neurological: Cranial Nerves Intact Neuro Extensive - Mental Status: Alert, Oriented x3, Normal Mood/Affect, Normal Cognition
== END 2021-08-01 14:00 | disposition home or self-care (01) | DRG 177 ==
LOC: JD.ED 09:51 → JD.MS 13:46
PROVIDERS: ADMIT Family Medicine; ATTEND Family Medicine
PROC: 8E0ZXY6 Isolation (ICD-10-PCS; principal; 2021-07-29)
PROC: XW033E5 Introduction of Remdesivir Anti-infective into Peripheral Vein, Percutaneous Approach, New Technology Group 5 (ICD-10-PCS; 2021-07-29)
PROC: 3E0DX3Z Introduction of Anti-inflammatory into Mouth and Pharynx, External Approach (ICD-10-PCS; 2021-07-29)
PROC: XW033G6 Introduction of REGN-COV2 Monoclonal Antibody into Peripheral Vein, Percutaneous Approach, New Technology Group 6 (ICD-10-PCS; 2021-07-29)
DX: U07.1 COVID-19 (principal); J12.82 Pneumonia due to coronavirus disease 2019; B38.9 Coccidioidomycosis, unspecified; E66.9 Obesity, unspecified; R74.8 Abnormal levels of other serum enzymes
CPT/HCPCS: 36415; 36600; 71045; 71045-26; 80048; 80053; 80076; 82803; 82947; 83036; 83735; 84100; 85025; 85379; 86140; 94667; 94668; 94762; 97161-GP; 99285-25; J1650; J1815-GY; J7050; J8540